=== PATIENT | male | born 1980 ===

== ENCOUNTER → 2020-02-13 | Emergency (ER) | payer OTHER ==
[~2020-02-13] VITALS: Ht 177.8 cm; Wt 98.4 kg
[~2020-02-13] MED LIST: BUSPIRONE HCL30 MG PO; COZAAR100 MG PO; INDERAL LA120 MG PO; JENTADUETO 2.51 EAC2 PO; PROCARDIA90 MG/BLIS PO; SEROQUEL50 MG PO; SERTRALINE20 MG/1 ML PO; VISTARIL50 MG PO; ZYLOPRIM100 M1 PO
== END | disposition home or self-care (01) ==
LOC: ER 15:02
DX: R30.0 Dysuria (principal); M54.5 Low back pain

== ENCOUNTER 2020-03-14 09:02 | Day surgery (SDC) | payer OTHER | END 2020-03-14 15:05 | disposition home or self-care (01) | LOC: AMB-ENDOS 09:02 | DX: K62.89 Other specified diseases of anus and rectum (principal); K52.89 Other specified noninfective gastroenteritis and colitis; K57.30 Diverticulosis of large intestine without perforation or abscess without bleeding; K64.8 Other hemorrhoids; Z12.11 Encounter for screening for malignant neoplasm of colon ==